=== PATIENT | female | born 1990 | race African-American/Black ===

== ENCOUNTER 2019-01-17 12:08 | Emergency (ER) | payer MEDICAID ==
[~2019-01-17] VITALS: Ht 165.1 cm; Wt 97.3 kg
[2019-01-17] MEDS ORDERED: MORPHINE SULFATE 4 MG/ML CPJ (NOT FOR IM USE) IV STA (13:00)
[2019-01-17] MEDS ORDERED: ONDANSETRON HCL 4MG/2ML INJ IV ONE (13:15)
[2019-01-17 13:29] LABS: CLARITY URINE CLOUDY (CLEAR); COLOR URINE YELLOW (YELLOW); KETONES URINE 1+ (NEGATIVE); LEUKOCYTE ESTERASE URINE 1+ (NEGATIVE); NITRITE URINE NEGATIVE (NEGATIVE); OCCULT BLOOD URINE NEGATIVE (NEGATIVE); PH URINE 5.5 (4.5-8.0); PROTEIN URINE NEGATIVE (NEGATIVE); SPECIFIC GRAVITY URINE 1.029 (1.005-1.030)
[2019-01-17 13:54] LABS: BASOPHILS % 0.5 % (0.0-2.0); EOSINOPHILS % 2.6 % (0.0-5.0); HEMATOCRIT. 34.1 % (36.0-48.0); HEMOGLOBIN. 11.4 g/dL (12.0-16.0); LYMPHOCYTES % 16.9 % (20.0-50.0); MEAN CORPUSCULAR HEMOGLOBIN 28.9 pg (28.0-32.0); MEAN CORPUSCULAR VOLUME 86.3 fL (81.0-99.0); MEAN PLATELET VOLUME 8.4 fl (7.4-10.4); MONOCYTES % 4.7 % (2.0-8.0); NEUTROPHILS % 75.3 % (40.0-76.0); PLATELET 300 x1000/uL (130-400); RED BLOOD CELL COUNT 3.95 mill/uL (4.2-5.4); RED CELL DISTRIBUTION WIDTH 13.3 % (11.6-14.6)
[2019-01-17 14:03] LABS: CHLORIDE 106 mEq/L (98-107)
[2019-01-17] MEDS ORDERED: ACETAMINOPHEN 325MG TABLET PO ONE (15:15)
[2019-01-17 16:02] VITALS: BP 122/88
== END 2019-01-17 16:04 | disposition home or self-care (01) ==
LOC: ER 12:08
DX: O23.41 Unspecified infection of urinary tract in pregnancy, first trimester (principal); R10.9 Unspecified abdominal pain; R11.2 Nausea with vomiting, unspecified; M54.30 Sciatica, unspecified side; O26.891 Other specified pregnancy related conditions, first trimester; Z3A.11 11 weeks gestation of pregnancy; Z91.018 Allergy to other foods
CPT/HCPCS: 36415; 76801; 76817; 80053; 81003; 85025; 96374; 99284; J2405; Z7610

== ENCOUNTER 2019-04-06 14:44 | Observation (INO) | payer MEDICAID ==
[~2019-04-06] VITALS: Ht 165.1 cm; Wt 99.8 kg
[2019-04-06] MEDS ORDERED: DEXT 5%/LACTATED RINGERS 1,000 ML IV SCH (15:45)
[2019-04-06] MEDS ORDERED: ACETAMINOPHEN 500MG TABLET PO NR (15:45)
[2019-04-06] MEDS ORDERED: ONDANSETRON HCL 4MG/2ML INJ IV PRN (15:45)
== END 2019-04-06 18:25 | disposition home or self-care (01) ==
LOC: 8 EST A/PP 14:44
PROVIDERS: ADMIT Obstetrics & Gynecology; ATTEND Obstetrics & Gynecology
DX: O21.2 Late vomiting of pregnancy (principal); O26.892 Other specified pregnancy related conditions, second trimester; G43.909 Migraine, unspecified, not intractable, without status migrainosus; Z3A.22 22 weeks gestation of pregnancy
CPT/HCPCS: 76805; 96374; 99281; G0378; J2405; 96360; 96361

== ENCOUNTER 2019-05-03 12:14 | Emergency (ER) | payer MEDICAID ==
[~2019-05-03] VITALS: Ht 172.7 cm; Wt 79.0 kg
[2019-05-03] MEDS ORDERED: DIPHENHYDRAMINE 50MG CAPSULE PO ONE (15:00)
[2019-05-03 17:15] LABS: BASOPHILS % 0.2 % (0.0-2.0); EOSINOPHILS % 0.3 % (0.0-5.0); HEMOGLOBIN. 10.8 g/dL (12.0-16.0); LYMPHOCYTES % 31.6 % (20.0-50.0); MEAN CORPUSCULAR HEMOGLOBIN 28.4 pg (28.0-32.0); MEAN CORPUSCULAR VOLUME 86.5 fL (81.0-99.0); MEAN PLATELET VOLUME 9.3 fl (7.4-10.4); MONOCYTES % 5.2 % (2.0-8.0); NEUTROPHILS % 62.7 % (40.0-76.0); PLATELET 243 x1000/uL (130-400); RED BLOOD CELL COUNT 3.81 mill/uL (4.2-5.4); RED CELL DISTRIBUTION WIDTH 12.8 % (11.6-14.6)
[2019-05-03 17:17] LABS: CHLORIDE 108 mEq/L (98-107)
[2019-05-03 18:30] VITALS: BP 131/75
[2019-05-03] MEDS ORDERED: HYDROCORTISONE 1% OINT 28.35GM TOP SCH (22:00)
== END 2019-05-03 19:30 | disposition home or self-care (01) ==
LOC: ER 12:14
DX: L30.9 Dermatitis, unspecified (principal); Z91.018 Allergy to other foods
CPT/HCPCS: 36415; 80053; 85025; 99283; Q0163

== ENCOUNTER 2019-08-06 02:41 | Observation (INO) | payer MEDICAID ==
[~2019-08-06] VITALS: Ht 162.6 cm; Wt 104.3 kg
[2019-08-06] MEDS ORDERED: PNV1TABL50 PO (03:42)
[2019-08-06] MEDS ORDERED: FERR-71 PO (03:42)
== END 2019-08-06 04:00 | disposition home or self-care (01) ==
LOC: 8 EST LDRP 02:41
PROVIDERS: ADMIT Obstetrics & Gynecology; ATTEND Obstetrics & Gynecology
DX: O26.893 Other specified pregnancy related conditions, third trimester (principal); R10.30 Lower abdominal pain, unspecified; O99.89 Other specified diseases and conditions complicating pregnancy, childbirth and the puerperium; M54.9 Dorsalgia, unspecified; Z3A.39 39 weeks gestation of pregnancy
CPT/HCPCS: 99281; G0378